=== PATIENT | male | born 1950 | race Caucasian/White ===

== ENCOUNTER 2016-10-23 18:25 | Emergency (ER) | payer OTHER, BC ==
[~2016-10-23] VITALS: Ht 185.4 cm; Wt 109.1 kg
[~2016-10-23 18:25] MED LIST: BENEMID500 MG PO; COLCRYS0.6 MG PO; COUMADIN5 MG PO; DECADRON2 MG PO; DEXAMETHASONE4 MG PO; LEVETIRACETAM1000 MG PO; PROTONIX40 MG PO; TEMODAR 100 MG100 MG PO; WARFARIN SODIUM5 MG PO; ZOFRAN4 MG PO
[2016-10-23 20:15] LABS: MCH 33.2 PG (29.0-34.0); MCHC 35.7 G/DL (30.0-36.0); MEAN PLAT.VOLUME 8.8 uM^3 (9.0-12.4); PLATELET COUNT 150 K/uL (156-360); RBC DIS.WIDTH-CV 12.4 % (11.8-14.6); RBC DIS.WIDTH-SD 40.5 % (39-53); RED BLOOD COUNT 3.98 M/uL (4.00-5.50); WHITE BLOOD COUNT 4.5 K/uL (4.1-10.2)
[2016-10-23 20:30] LABS: CHLORIDE 108 mEq/L (99-109); POTASSIUM 3.5 mEq/L (3.7-5.4); SODIUM 141 mEq/L (136-147)
[2016-10-23 20:31] LABS: INTER. NORMALIZED RATIO 2.4; PROTHROMBIN TIME 25.2 (9.2-11.2); PTT 40.3 (25-32)
[2016-10-23 20:32] LABS: GLUCOSE 102 mg/dL (70-99)
[2016-10-23 20:33] LABS: ANION GAP 9 MEQ/L (2-14)
[2016-10-23 20:36] LABS: GFR ESTIMATE (CALCULATED) > 59 mL/min/
[2016-10-23 20:37] LABS: UREA NITROGEN (BUN) 11 mg/dL (9-23)
[2016-10-24 00:06] VITALS: BP 163/91
== END 2016-10-24 00:06 | disposition home or self-care (01) ==
LOC: EME → EDBD 18:25 → EME 10-24 00:06
PROVIDERS: Physician Assistant
DX: M54.16 Radiculopathy, lumbar region (principal); E78.5 Hyperlipidemia, unspecified; Z86.718 Personal history of other venous thrombosis and embolism; Z79.01 Long term (current) use of anticoagulants; Z87.891 Personal history of nicotine dependence
CPT/HCPCS: 70450; 72100; 80048; 85027; 85610; 85730; 93971; 99281; 99284

== ENCOUNTER 2017-03-05 18:37 | Inpatient (IN) | payer OTHER, BC ==
[~2017-03-05] VITALS: Ht 185.4 cm; Wt 112.0 kg
[2017-03-05 19:18] LABS: EOSINOPHIL (%) 0.8 % (0-5); HEMATOCRIT 39.4 % (38.0-50.0); IMMATURE GRANULOCYTE (%) 0.5 % (0.0-0.7); INSTRUMENT ABS NEUTROPHIL CT 2.6 K/uL; LYMPHOCYTE COUNT 0.6 K/uL (1.0-2.8); MCH 32.9 PG (29.0-34.0); MCHC 34.8 G/DL (30.0-36.0); MCV 94.7 FL (86-99); MEAN PLAT.VOLUME 8.9 uM^3 (9.0-12.4); MONOCYTE (%) 10.5 % (3-12); MONOCYTE COUNT 0.4 K/uL (0-0.8); NEUTROPHIL (%) 70.7 % (45-76); NEUTROPHIL COUNT 2.6 K/uL (1.8-6.4); PLATELET COUNT 142 K/uL (156-360); RBC DIS.WIDTH-CV 12.6 % (11.8-14.6); RBC DIS.WIDTH-SD 43.5 % (39-53); RED BLOOD COUNT 4.16 M/uL (4.00-5.50); WHITE BLOOD COUNT 3.7 K/uL (4.1-10.2)
[2017-03-05 19:32] LABS: CHLORIDE 108 mEq/L (99-109); POTASSIUM 3.6 mEq/L (3.7-5.4); SODIUM 144 mEq/L (136-147)
[2017-03-05 19:33] LABS: GLUCOSE 127 mg/dL (70-99)
[2017-03-05 19:35] LABS: ANION GAP 12 MEQ/L (2-14)
[2017-03-05 19:37] LABS: GFR ESTIMATE (CALCULATED) > 59 mL/min/
[2017-03-05 19:38] LABS: UREA NITROGEN (BUN) 15 mg/dL (9-23)
[2017-03-05 19:41] LABS: INTER. NORMALIZED RATIO 2.5; PROTHROMBIN TIME 26.6 (9.2-11.2); PTT 34.4 (25-32)
[2017-03-06] MEDS ORDERED: WARFARIN SODIUM5 MG PO ×2 (01:02→01:03)
[2017-03-06] MEDS ORDERED: LEVETIRACETAM1000 MG PO (01:03)
[2017-03-06] MEDS ORDERED: PROBENECID500 MG PO ×2 (01:03)
[2017-03-06] MEDS ORDERED: PANTOPRAZOLE SO40 MG PO (01:04)
[2017-03-06] MEDS ORDERED: DEXAMETHASONE1 MG PO (01:04)
[2017-03-06] MEDS ORDERED: DITROPAN XL15 MG PO (01:05)
[2017-03-06 02:10] VITALS: BP 163/88
[2017-03-06 08:27] VITALS: BP 158/92
[2017-03-06 09:22] LABS: HEMATOCRIT 37.7 % (38.0-50.0); MCH 33.8 PG (29.0-34.0); MCHC 35.8 G/DL (30.0-36.0); MCV 94.3 FL (86-99); MEAN PLAT.VOLUME 8.8 uM^3 (9.0-12.4); PLATELET COUNT 141 K/uL (156-360); RBC DIS.WIDTH-CV 12.5 % (11.8-14.6); RBC DIS.WIDTH-SD 43.5 % (39-53); WHITE BLOOD COUNT 5.4 K/uL (4.1-10.2)
[2017-03-06 09:25] LABS: INTER. NORMALIZED RATIO 3.3; PROTHROMBIN TIME 34.7 (9.2-11.2)
[2017-03-06 09:38] LABS: ANION GAP 10 MEQ/L (2-14); CHLORIDE 103 MEQ/L (99-109); GFR ESTIMATE (CALCULATED) > 59 mL/min/; GLUCOSE 134 mg/dL (70-99); POTASSIUM 3.6 MEQ/L (3.7-5.4); SAMPLE HEMOLYSIS CHECK 0; SAMPLE ICTERIC CHECK 0; SAMPLE LIPEMIA CHECK 0; SODIUM 139 MEQ/L (136-147); UREA NITROGEN (BUN) 11 mg/dL (9-23)
[2017-03-06 11:00] VITALS: BP 128/82
[2017-03-06 13:33] LABS: HDL CHOLESTEROL 49 MG/DL (Desirable>=40); LDL CHOLESTEROL 108 mg/dL (Desirable<100); NON-HDL CHOLESTEROL 122 mg/dL (Desirable<160); TOTAL CHOLESTEROL 171 mg/dL (Desirable<200); TRIGLYCERIDES 71 MG/DL (Normal: <150)
[2017-03-06 14:14] LABS: Estimated Average Glucose 111 mg/dL (70-123); HEMOGLOBIN A1c (GLYCOHEMOGLOB) 5.5 % HGB (Below 5.7)
[2017-03-06 15:43] VITALS: BP 139/84
[2017-03-06 20:00] VITALS: BP 148/84
[2017-03-07] VITALS (7 sets, daily range): BP systolic 121–144; BP diastolic 72–88
[2017-03-07 06:54] LABS: HEMATOCRIT 38.2 % (38.0-50.0); MCH 32.8 PG (29.0-34.0); MCHC 34.8 G/DL (30.0-36.0); MCV 94.1 FL (86-99); PLATELET COUNT 150 K/uL (156-360); RBC DIS.WIDTH-CV 12.4 % (11.8-14.6); RBC DIS.WIDTH-SD 43.1 % (39-53); RED BLOOD COUNT 4.06 M/uL (4.00-5.50); WHITE BLOOD COUNT 4.9 K/uL (4.1-10.2)
[2017-03-07 07:20] LABS: INTER. NORMALIZED RATIO 2.7; PROTHROMBIN TIME 28.1 (9.2-11.2)
[2017-03-07 07:23] LABS: ALKALINE PHOSPHATASE 86 IU/L (3-129); ANION GAP 11 MEQ/L (2-14); CHLORIDE 102 MEQ/L (99-109); GFR ESTIMATE (CALCULATED) > 59 mL/min/; GLUCOSE 110 mg/dL (70-99); POTASSIUM 3.7 MEQ/L (3.7-5.4); SAMPLE HEMOLYSIS CHECK 0; SAMPLE ICTERIC CHECK 0; SAMPLE LIPEMIA CHECK 0; SODIUM 139 MEQ/L (136-147); TOTAL BILIRUBIN 0.6 MG/DL (0.0-1.0); UREA NITROGEN (BUN) 12 mg/dL (9-23)
[2017-03-08 03:42] VITALS: BP 129/80
[2017-03-08 06:46] LABS: INTER. NORMALIZED RATIO 1.9; PROTHROMBIN TIME 19.4 (9.2-11.2)
[2017-03-08 07:25] VITALS: BP 167/82
[2017-03-08 11:15] VITALS: BP 127/86
[2017-03-08 15:20] VITALS: BP 131/87
[2017-03-08 19:24] VITALS: BP 141/87
[2017-03-08 23:19] VITALS: BP 141/96
[2017-03-09 04:01] VITALS: BP 124/68
[2017-03-09 06:33] LABS: EOSINOPHIL COUNT 0.1 K/uL (0-0.3); HEMATOCRIT 39.5 % (38.0-50.0); IMMATURE GRANULOCYTE (%) 0.2 % (0.0-0.7); INSTRUMENT ABS NEUTROPHIL CT 2.9 K/uL; LYMPHOCYTE COUNT 1.3 K/uL (1.0-2.8); MCH 32.2 PG (29.0-34.0); MCHC 34.2 G/DL (30.0-36.0); MCV 94.3 FL (86-99); MEAN PLAT.VOLUME 8.8 uM^3 (9.0-12.4); MONOCYTE (%) 11.7 % (3-12); MONOCYTE COUNT 0.6 K/uL (0-0.8); NEUTROPHIL (%) 60.2 % (45-76); NEUTROPHIL COUNT 2.9 K/uL (1.8-6.4); PLATELET COUNT 176 K/uL (156-360); RBC DIS.WIDTH-CV 12.5 % (11.8-14.6); RBC DIS.WIDTH-SD 43.1 % (39-53); RED BLOOD COUNT 4.19 M/uL (4.00-5.50); WHITE BLOOD COUNT 4.8 K/uL (4.1-10.2)
[2017-03-09 06:55] LABS: ANION GAP 10 MEQ/L (2-14); CHLORIDE 103 MEQ/L (99-109); GFR ESTIMATE (CALCULATED) > 59 mL/min/; GLUCOSE 124 mg/dL (70-99); POTASSIUM 3.5 MEQ/L (3.7-5.4); SAMPLE HEMOLYSIS CHECK 0; SAMPLE ICTERIC CHECK 0; SAMPLE LIPEMIA CHECK 0; SODIUM 139 MEQ/L (136-147); UREA NITROGEN (BUN) 14 mg/dL (9-23)
[2017-03-09 07:15] VITALS: BP 153/7
[2017-03-09 07:15] LABS: PROTHROMBIN TIME 20.5 (9.2-11.2)
[2017-03-09 07:30] VITALS: BP 153/71
[2017-03-09 11:16] VITALS: BP 146/81
[2017-03-09 15:08] VITALS: BP 122/85
[2017-03-09 21:12] VITALS: BP 151/95
[2017-03-10 00:51] VITALS: BP 152/94
[2017-03-10 07:15] VITALS: BP 167/80
[2017-03-10 08:30] LABS: EOSINOPHIL (%) 1.3 % (0-5); EOSINOPHIL COUNT 0.1 K/uL (0-0.3); HEMATOCRIT 39.9 % (38.0-50.0); IMMATURE GRANULOCYTE (%) 0.6 % (0.0-0.7); INSTRUMENT ABS NEUTROPHIL CT 2.9 K/uL; LYMPHOCYTE COUNT 1.1 K/uL (1.0-2.8); MCH 33.4 PG (29.0-34.0); MCHC 35.8 G/DL (30.0-36.0); MCV 93.2 FL (86-99); MEAN PLAT.VOLUME 8.8 uM^3 (9.0-12.4); MONOCYTE (%) 12.2 % (3-12); MONOCYTE COUNT 0.6 K/uL (0-0.8); NEUTROPHIL (%) 62.6 % (45-76); NEUTROPHIL COUNT 2.9 K/uL (1.8-6.4); PLATELET COUNT 182 K/uL (156-360); RBC DIS.WIDTH-CV 12.5 % (11.8-14.6); RBC DIS.WIDTH-SD 42.5 % (39-53); RED BLOOD COUNT 4.28 M/uL (4.00-5.50); WHITE BLOOD COUNT 4.7 K/uL (4.1-10.2)
[2017-03-10 08:38] LABS: INTER. NORMALIZED RATIO 1.7
[2017-03-10 08:51] LABS: ANION GAP 9 MEQ/L (2-14); CHLORIDE 102 MEQ/L (99-109); GFR ESTIMATE (CALCULATED) > 59 mL/min/; GLUCOSE 117 mg/dL (70-99); POTASSIUM 3.8 MEQ/L (3.7-5.4); SAMPLE HEMOLYSIS CHECK 0; SAMPLE ICTERIC CHECK 0; SAMPLE LIPEMIA CHECK 0; SODIUM 139 MEQ/L (136-147); UREA NITROGEN (BUN) 10 mg/dL (9-23)
[2017-03-10 15:02] VITALS: BP 148/76
[2017-03-10 23:30] VITALS: BP 156/80
[2017-03-11 07:21] LABS: INTER. NORMALIZED RATIO 2.1; PROTHROMBIN TIME 22.3 (9.2-11.2)
[2017-03-11 08:12] VITALS: BP 153/84
[2017-03-11] MEDS ORDERED: LEVETIRACETAM500 MG PO (10:47)
[2017-03-11] MEDS ORDERED: PRAVASTATIN SOD40 MG PO (10:47)
== END 2017-03-11 14:35 | DRG 100 ==
LOC: EME 18:37 → EDOF 03-06 00:44 → 5SOUTH 03-06 00:44
PROVIDERS: Emergency Medicine; Hospitalist; Internal Medicine; Nurse Practitioner Adult Health
DX: G40.909 Epilepsy, unspecified, not intractable, without status epilepticus (principal); I63.9 Cerebral infarction, unspecified; M62.81 Muscle weakness (generalized); Z86.718 Personal history of other venous thrombosis and embolism; M10.9 Gout, unspecified; K21.9 Gastro-esophageal reflux disease without esophagitis; E78.5 Hyperlipidemia, unspecified; R29.810 Facial weakness; R47.89 Other speech disturbances; Z85.841 Personal history of malignant neoplasm of brain
CPT/HCPCS: 70450; 70553; 80048; 80053; 80061; 81003; 83036; 85025; 85027; 85610; 85730; 92523 GN; 92610 GN; 93880; 93970; 95819; 97530 GO; 97530 GP; 99281; 99285; J1953; J2270; J7050; J8540